=== PATIENT | male | born 1990 | race Two or more races ===

== ENCOUNTER 2024-06-20 08:07 | Emergency (ER) | payer OTHER ==
[~2024-06-20] VITALS: Ht 177.8 cm; Wt 78.0 kg
[2024-06-20] MEDS ORDERED: EMTRICITABINE-1 EACH PO (08:28)
[2024-06-20] MEDS ORDERED: DOXYCYCLINE HY100 M2 PO (08:28)
[2024-06-20] MEDS ORDERED: ZOVIRAX200 MG PO (08:29)
== END 2024-06-20 09:25 ==
LOC: ER 08:10
DX: A63.0 Anogenital (venereal) warts (principal); Z88.6 Allergy status to analgesic agent